=== PATIENT | female | born 2000 | race Caucasian/White ===

== ENCOUNTER 2022-08-23 10:57 | Outpatient (CLI) | payer BC, SELFPAY ==
--- NOTE | 2022-08-23 11:00 | CRLHL7_ITS ---
For Patients: As a result of the Cures Act, medical imaging exams and procedure reports are released immediately into your electronic medical record. You may view this report before your referring provider. If you have questions, please contact your health care provider. INDICATION: First trimester scan, establish dates. COMPARISON: None. TECHNIQUE: Real-time trotter-scale imaging of the pelvis was performed. FINDINGS: Sonographic imaging demonstrates a single living intrauterine gestation. The embryo demonstrates a regular cardiac rate measuring 121 beats per minute. The embryo`s crown-rump length measurement of 0.9 cm corresponds to a gestational age of 7 weeks 0 days with a sonographic due date of April 11, 2023. There is a normal-appearing yolk sac measuring 2.3 mm. There are no gross abnormalities noted within the embryo at this early state of development. The placenta has not yet developed. The gestational sac has a normal appearance and there is no evidence of a perigestational hemorrhage. The amount of fluid within the sac appears appropriate for gestational age. The cervix is closed. The myometrium appears normal. The ovaries are of normal size. The right ovary measures 3.8 x 2.1 x 2.6 cm. The left ovary measures 3.8 x 2.2 x 2.3 cm. Small corpus luteum cyst of on the left. There are no suspicious fluid collections noted in the cul-de-sac. IMPRESSION: Normal first trimester OB ultrasound exam. Gestational age calculated at 7 weeks 0 days with a sonographic due date of April 11, 2023. Dictated by Ulises Scott MD @ 08/23/2022 12:03:13 PM (Electronically Signed)
== END 2022-08-23 10:58 | disposition home or self-care (01) ==
PROVIDERS: Visit Provider Physician Assistant
DX: Z34.91 Encounter for supervision of normal pregnancy, unspecified, first trimester (principal); Z3A.01 Less than 8 weeks gestation of pregnancy
CPT/HCPCS: 76817; 84702

== ENCOUNTER 2022-09-01 09:51 | Outpatient (CLI) | payer BC, SELFPAY | END 2022-09-01 09:52 | disposition home or self-care (01) | LOC: NFLDREF 09:53 | PROVIDERS: Visit Provider Physician Assistant | DX: Z33.2 Encounter for elective termination of pregnancy (principal) | CPT/HCPCS: 84702 ==

== ENCOUNTER 2023-08-24 14:39 | Outpatient (CLI) | payer BC, SELFPAY ==
[2023-08-24 21:00] LABS: Chlamydia DNA Amplified* NOT DETECTED (No Detected); GC DNA Amplified* NOT DETECTED (No Detected)
== END 2023-08-24 14:40 | disposition home or self-care (01) ==
LOC: NFLDREF 14:39
PROVIDERS: Visit Provider Physician Assistant
DX: Z11.3 Encounter for screening for infections with a predominantly sexual mode of transmission (principal)
CPT/HCPCS: 87491; 87591